=== PATIENT | male | born 1990 | race African-American/Black ===

== ENCOUNTER 2017-08-27 18:01 | Emergency (ER) | payer SELFPAY ==
[~2017-08-27] VITALS: Ht 180.3 cm; Wt 50.0 kg
[2017-08-27 18:40] VITALS: BP 127/65
== END 2017-08-28 | disposition left against medical advice (07) ==
LOC: ER 20:12
DX: R51 Headache (principal); Z53.21 Procedure and treatment not carried out due to patient leaving prior to being seen by health care provider